=== PATIENT | male | born 1955 | race Caucasian/White ===

== ENCOUNTER 2018-06-30 06:47 | Inpatient (IN) | payer BC, MEDICARE ==
[~2018-06-30] VITALS: Ht 170.2 cm; Wt 98.7 kg
[2018-06-30] MEDS ORDERED: SODIUM CHLORIDE 0.9% 1,000ML IVBOLUS ONE (07:00)
[2018-06-30 07:28] LABS: MEAN CORPUSCULAR HEMOGLOBIN 29.7 pg (27.5-34.5); MEAN CORPUSCULAR HGB CONC 32.9 g/dL (33.2-36.2); MEAN CORPUSCULAR VOLUME 90.3 fL (81-97); MEAN PLATELET VOLUME 8.6 fL (7.4-10.4); PLATELET COUNT 240 x10^3/uL (130-400); RED BLOOD COUNT 4.91 x10^6/uL (4.38-5.82); RED CELL DISTRIBUTION WIDTH 14.6 % (9.4-14.8)
[2018-06-30] MEDS ORDERED: PIPERACILLIN/TAZO/PMX 4.5GM 100 ML IV ONE (07:30)
[2018-06-30] MEDS ORDERED: VANCOMYCIN PER PHARMACY MC PRN (07:30)
[2018-06-30] MEDS ORDERED: ISOS30TA8 PO (07:31)
[2018-06-30] MEDS ORDERED: AMLO10TA6 PO (07:31)
[2018-06-30] MEDS ORDERED: MORP30TA81 PO (07:31)
[2018-06-30] MEDS ORDERED: DOXA1TAB2 PO (07:31)
[2018-06-30] MEDS ORDERED: HYDR-3653 PO (07:31)
[2018-06-30] MEDS ORDERED: BECL10.62 NEB (07:31)
[2018-06-30] MEDS ORDERED: ALBU8.5H8 INH (07:31)
[2018-06-30] MEDS ORDERED: FURO40TA6 PO (07:31)
[2018-06-30 07:37] LABS: ALBUMIN 2.5 g/dL (3.4-5.0); ANION GAP 6 mmol/L (5-15); CALCIUM 9.1 mg/dL (8.5-10.1); CHLORIDE 96 mmol/L (98-107)
[2018-06-30 07:40] LABS: INTERNATIONAL NORMALIZED RATIO 1.12 (0.93-1.1); MD YES; PROTHROMBIN TIME 11.8 Seconds (9.6-11.5)
[2018-06-30 07:41] LABS: <PLATELET ESTIMATE> ADEQUATE; <PLT MORPHOLOGY> NORMAL PLT MORPH; <RBC MORPHOLOGY> NORMAL; BAND#(MANUAL) 2.03 x10^3/uL; BANDS%(MANUAL) 7 % (0-7); LYMPH#(MANUAL) 0.58 x10^3/uL (1-3.4); LYMPHS% (MANUAL) 2 % (22-44); MONOS#(MANUAL) 3.48 x10^3/uL (0.3-2.7); MONOS% (MANUAL) 12 % (2-9); SEG#(MANUAL) 22.91 x10^3/uL (1.8-6.8); SEGS% (MANUAL) 79 % (42-75)
[2018-06-30 07:43] LABS: ALANINE AMINOTRANSFERASE 15 U/L (12-78); ALKALINE PHOSPHATASE 81 U/L (45-117); BILIRUBIN,TOTAL 1.3 mg/dL (0.2-1.0); CREATININE 1.01 mg/dL (0.7-1.3); TOTAL PROTEIN 8.1 g/dL (6.4-8.2); TROPONIN I < 0.015 ng/mL (0.000-0.045)
[2018-06-30] MEDS ORDERED: VANCOMYCIN 1,900 MG in SODIUM CHLORIDE 0.9% 250 ML IV ONE (08:00)
[2018-06-30] MEDS ORDERED: SODIUM CHLORIDE 0.9%, 500ML IVBOLUS ONE (08:30)
[2018-06-30] MEDS ORDERED: OMNIPAQUE 350 MG/ML, 100ML BOTTLE ONE (08:50)
[2018-06-30] MEDS ORDERED: ACETAMINOPHEN 325 MG TABLET PO PRN (10:30)
[2018-06-30] MEDS ORDERED: ENOXAPARIN 40 MG/0.4 ML ONE (11:47)
[2018-06-30] MEDS ORDERED: NS + 20MEQ KCL 1,000 ML IV ONE (11:47)
[2018-06-30] MEDS ORDERED: PIPERACILLIN/TAZO/PMX 4.5GM 100 ML IV SCH (12:00)
[2018-06-30] MEDS: ENOXAPARIN 40 MG/0.4 ML SQ SCH (12:02)
[2018-06-30] MEDS: NS + 20MEQ KCL 1,000 ML IV SCH ×2 (12:02→23:25)
[2018-06-30 13:31] VITALS: BP 105/71
[2018-06-30] MEDS: PIPERACILLIN/TAZO/PMX 4.5GM 100 ML IV SCH (16:36)
[2018-06-30 20:53] VITALS: BP 117/78
[2018-07-01] MEDS: PIPERACILLIN/TAZO/PMX 4.5GM 100 ML IV SCH ×3 (01:03→16:38)
[2018-07-01 01:10] VITALS: BP 107/72
[2018-07-01] MEDS ORDERED: SODIUM CHLORIDE INHALATION 7%, 4 ML NPPB ONE (04:00)
[2018-07-01 05:41] LABS: CHLORIDE 95 mmol/L (98-107)
[2018-07-01 05:45] LABS: MEAN CORPUSCULAR HEMOGLOBIN 29.4 pg (27.5-34.5); MEAN CORPUSCULAR HGB CONC 32.3 g/dL (33.2-36.2); MEAN CORPUSCULAR VOLUME 90.9 fL (81-97); MEAN PLATELET VOLUME 8.3 fL (7.4-10.4); PLATELET COUNT 224 x10^3/uL (130-400); RED BLOOD COUNT 4.23 x10^6/uL (4.38-5.82); RED CELL DISTRIBUTION WIDTH 14.6 % (9.4-14.8)
[2018-07-01 05:52] LABS: ANION GAP 5 mmol/L (5-15); CALCIUM 8.3 mg/dL (8.5-10.1); CREATININE 0.71 mg/dL (0.7-1.3)
[2018-07-01 06:12] LABS: MD YES
[2018-07-01 06:15] LABS: BANDS%(MANUAL) 7 % (0-7); LYMPHS% (MANUAL) 4 % (22-44); MONOS% (MANUAL) 6 % (2-9); SEGS% (MANUAL) 83 % (42-75)
[2018-07-01 06:16] LABS: <PLATELET ESTIMATE> ADEQUATE; <RBC MORPHOLOGY> NORMAL
[2018-07-01 06:17] LABS: <PLT MORPHOLOGY> NORMAL PLT MORPH
[2018-07-01 06:58] VITALS: BP 110/76
[2018-07-01] MEDS: NS + 20MEQ KCL 1,000 ML IV SCH (08:37)
[2018-07-01] MEDS: ENOXAPARIN 40 MG/0.4 ML SQ SCH (10:55)
[2018-07-01 12:33] VITALS: BP 114/72
[2018-07-01 18:29] VITALS: BP 110/72
[2018-07-01] MEDS: ALBUTEROL/IPRATROPIUM 2.5MG/0.5MG, 3 ML NPPB PRN (20:33)
[2018-07-02] MEDS: PIPERACILLIN/TAZO/PMX 4.5GM 100 ML IV SCH ×3 (00:14→16:21)
[2018-07-02 00:16] VITALS: BP 118/81
[2018-07-02] MEDS: ALBUTEROL/IPRATROPIUM 2.5MG/0.5MG, 3 ML NPPB PRN (04:05)
[2018-07-02 05:29] LABS: MEAN CORPUSCULAR HEMOGLOBIN 29.9 pg (27.5-34.5); MEAN CORPUSCULAR HGB CONC 32.9 g/dL (33.2-36.2); MEAN CORPUSCULAR VOLUME 91.1 fL (81-97); MEAN PLATELET VOLUME 8.2 fL (7.4-10.4); PLATELET COUNT 222 x10^3/uL (130-400); RED BLOOD COUNT 4.17 x10^6/uL (4.38-5.82); RED CELL DISTRIBUTION WIDTH 14.8 % (9.4-14.8)
[2018-07-02 05:34] LABS: ALANINE AMINOTRANSFERASE 21 U/L (12-78); ALBUMIN 2.2 g/dL (3.4-5.0); ANION GAP 5 mmol/L (5-15); CALCIUM 8.5 mg/dL (8.5-10.1); CHLORIDE 96 mmol/L (98-107); CREATININE 0.64 mg/dL (0.7-1.3)
[2018-07-02 05:36] LABS: ALKALINE PHOSPHATASE 115 U/L (45-117); BILIRUBIN,TOTAL 0.5 mg/dL (0.2-1.0); TOTAL PROTEIN 7.3 g/dL (6.4-8.2)
[2018-07-02 05:45] LABS: HEMOGLOBIN A1C 6.2 % (4.2-6.3)
[2018-07-02 05:56] LABS: BASOPHILS # (AUTO) 0.04 x10^3/uL (0-0.1); BASOPHILS % (AUTO) 0 % (0-1); EOSINOPHILS # (AUTO) 0.01 x10^3/uL (0-0.4); EOSINOPHILS % (AUTO) 0 % (1-7); LYMPHOCYTES # (AUTO) 0.87 x10^3/uL (1-3.4); LYMPHOCYTES % (AUTO) 6 % (22-44); MD SCAN; MONOCYTES # (AUTO) 1.25 x10^3/uL (0.2-0.8); MONOCYTES % (AUTO) 9 % (2-9); NEUTROPHILS # (AUTO) 12.09 x10^3/uL (1.8-6.8); NEUTROPHILS % (AUTO) 85 % (42-75)
[2018-07-02] MEDS ORDERED: VANCOMYCIN PER PHARMACY MC PRN (08:30)
[2018-07-02] MEDS ORDERED: PHARMACOKINETIC CONSULTATION MC ONE (09:00)
[2018-07-02] MEDS ORDERED: PHARMACOKINETIC MONITORING MC PRN (09:00)
[2018-07-02 09:40] LABS: RAPID INFLUENZA A Negative (Negative); RAPID INFLUENZA B Negative (Negative)
[2018-07-02] MEDS: ENOXAPARIN 40 MG/0.4 ML SQ SCH (10:45)
[2018-07-02] MEDS: SODIUM CHLORIDE 0.9% 1,000 ML IV SCH (10:45)
[2018-07-02] MEDS: VANCOMYCIN 1,900 MG in SODIUM CHLORIDE 0.9% 250 ML IV SCH ×2 (10:45→21:45)
[2018-07-02] MEDS: ALBUTEROL/IPRATROPIUM 2.5MG/0.5MG, 3 ML NPPB SCH ×2 (13:45→20:00)
[2018-07-03] MEDS: PIPERACILLIN/TAZO/PMX 4.5GM 100 ML IV SCH ×3 (00:31→15:49)
[2018-07-03] MEDS: SODIUM CHLORIDE 0.9% 1,000 ML IV SCH (00:31)
[2018-07-03] MEDS ORDERED: SENNA/DOCUSATE TABLET PO PRN (04:00)
[2018-07-03 04:15] LABS: BASOPHILS % (AUTO) 0 % (0-1); EOSINOPHILS # (AUTO) 0.05 x10^3/uL (0-0.4); EOSINOPHILS % (AUTO) 0 % (1-7); LYMPHOCYTES # (AUTO) 1.26 x10^3/uL (1-3.4); LYMPHOCYTES % (AUTO) 10 % (22-44); MD NO; MEAN CORPUSCULAR HEMOGLOBIN 29.7 pg (27.5-34.5); MEAN CORPUSCULAR HGB CONC 32.7 g/dL (33.2-36.2); MEAN CORPUSCULAR VOLUME 90.6 fL (81-97); MEAN PLATELET VOLUME 7.9 fL (7.4-10.4); MONOCYTES # (AUTO) 0.16 x10^3/uL (0.2-0.8); MONOCYTES % (AUTO) 1 % (2-9); NEUTROPHILS # (AUTO) 10.66 x10^3/uL (1.8-6.8); NEUTROPHILS % (AUTO) 88 % (42-75); PLATELET COUNT 270 x10^3/uL (130-400); RED BLOOD COUNT 4.23 x10^6/uL (4.38-5.82); RED CELL DISTRIBUTION WIDTH 14.7 % (9.4-14.8)
[2018-07-03 04:26] LABS: ALANINE AMINOTRANSFERASE 20 U/L (12-78); ANION GAP 7 mmol/L (5-15); CALCIUM 7.8 mg/dL (8.5-10.1); CHLORIDE 99 mmol/L (98-107); CREATININE 0.61 mg/dL (0.7-1.3)
[2018-07-03 04:29] LABS: ALKALINE PHOSPHATASE 102 U/L (45-117); BILIRUBIN,TOTAL 0.7 mg/dL (0.2-1.0); TOTAL PROTEIN 6.6 g/dL (6.4-8.2)
[2018-07-03] MEDS: ALBUTEROL/IPRATROPIUM 2.5MG/0.5MG, 3 ML NPPB SCH ×4 (07:45→20:00)
[2018-07-03] MEDS: VANCOMYCIN 1,900 MG in SODIUM CHLORIDE 0.9% 250 ML IV SCH ×2 (08:51→20:25)
[2018-07-03] MEDS: ENOXAPARIN 40 MG/0.4 ML SQ SCH (10:28)
[2018-07-03] MEDS: KETOROLAC 30 MG/1 ML IV PRN (22:05)
[2018-07-04] MEDS: PIPERACILLIN/TAZO/PMX 4.5GM 100 ML IV SCH ×3 (00:59→16:49)
[2018-07-04 05:32] LABS: ANION GAP 8 mmol/L (5-15); CALCIUM 8.2 mg/dL (8.5-10.1); CHLORIDE 100 mmol/L (98-107); CREATININE 0.53 mg/dL (0.7-1.3)
[2018-07-04] MEDS ORDERED: POTASSIUM CHLORIDE 20 MEQ TAB.ER.PRT PO ONE ×3 (06:30→10:30)
[2018-07-04] MEDS: ALBUTEROL/IPRATROPIUM 2.5MG/0.5MG, 3 ML NPPB SCH (07:45)
[2018-07-04] MEDS: VANCOMYCIN 1,900 MG in SODIUM CHLORIDE 0.9% 250 ML IV SCH (09:24)
[2018-07-04] MEDS: ENOXAPARIN 40 MG/0.4 ML SQ SCH (09:24)
[2018-07-04] MEDS: KETOROLAC 30 MG/1 ML IV PRN ×2 (10:14→21:25)
[2018-07-04] MEDS: ALBUTEROL/IPRATROPIUM 2.5MG/0.5MG, 3 ML NPPB PRN (10:20)
[2018-07-04] MEDS ORDERED: ALUMINUM/MAG/SIMETHICONE 30 ML UDC PO PRN (14:30)
[2018-07-04] MEDS: OXYcodone IR 5MG TABLET PO PRN ×2 (14:35→21:25)
[2018-07-05] MEDS: OXYcodone IR 5MG TABLET PO PRN ×6 (00:24→21:25)
[2018-07-05] MEDS: PIPERACILLIN/TAZO/PMX 4.5GM 100 ML IV SCH (00:24)
[2018-07-05] MEDS ORDERED: VANCOMYCIN 1,900 MG in SODIUM CHLORIDE 0.9% 250 ML IV SCH (02:00)
[2018-07-05 08:00] VITALS: BP 147/74
[2018-07-05] MEDS: CEFTRIAXONE PMX 1GM/50ML 50 ML IV SCH (09:04)
[2018-07-05 10:30] VITALS: BP 127/84
[2018-07-05] MEDS: ENOXAPARIN 40 MG/0.4 ML SQ SCH (12:15)
[2018-07-05] MEDS: DOXYCYCLINE 100 MG in DEXTROSE 5% 250 ML IV SCH ×2 (12:15→23:56)
[2018-07-05 12:58] VITALS: BP 146/91
[2018-07-05 20:05] VITALS: BP 119/75
[2018-07-06 01:32] VITALS: BP 160/85
[2018-07-06] MEDS: OXYcodone IR 5MG TABLET PO PRN ×3 (02:14→13:16)
[2018-07-06 06:47] VITALS: BP 126/70
[2018-07-06] MEDS: CEFTRIAXONE PMX 1GM/50ML 50 ML IV SCH (08:31)
[2018-07-06] MEDS ORDERED: BUDESONIDE 0.5 MG/2 ML INHA NPPB SCH (09:00)
[2018-07-06] MEDS ORDERED: DOXAZOSIN 1MG TABLET PO SCH (09:00)
[2018-07-06] MEDS ORDERED: AMLODIPINE 10 MG TAB PO SCH (09:00)
[2018-07-06] MEDS ORDERED: FUROSEMIDE 40 MG TABLET PO SCH (09:00)
[2018-07-06] MEDS ORDERED: ISOSORBIDE MONONITRATE ER 30 MG TABLET PO SCH (09:00)
[2018-07-06 12:30] VITALS: BP 105/74
[2018-07-06] MEDS ORDERED: CEFD300C37 PO (12:44)
[2018-07-06] MEDS ORDERED: DOXY100T PO (12:44)
[2018-07-06] MEDS: ENOXAPARIN 40 MG/0.4 ML SQ SCH (13:16)
[2018-07-06] MEDS: DOXYCYCLINE 100 MG in DEXTROSE 5% 250 ML IV SCH (13:17)
== END 2018-07-06 18:16 | disposition home or self-care (01) | DRG 871 ==
LOC: ED 09:20 → EDIP 09:29 → 5SO 13:18 → CCU 07-02 07:20 → 5SO 07-05 10:15
PROVIDERS: ADMIT Emergency Medicine; ATTEND Emergency Medicine
DX: A41.9 Sepsis, unspecified organism (principal); J18.9 Pneumonia, unspecified organism; E43 Unspecified severe protein-calorie malnutrition; I50.33 Acute on chronic diastolic (congestive) heart failure; J96.01 Acute respiratory failure with hypoxia; J96.02 Acute respiratory failure with hypercapnia; J44.0 Chronic obstructive pulmonary disease with (acute) lower respiratory infection; F11.20 Opioid dependence, uncomplicated; K92.0 Hematemesis; Z87.891 Personal history of nicotine dependence; F12.90 Cannabis use, unspecified, uncomplicated; Z91.041 Radiographic dye allergy status; M54.9 Dorsalgia, unspecified; G47.33 Obstructive sleep apnea (adult) (pediatric); G89.4 Chronic pain syndrome; I27.20 Pulmonary hypertension, unspecified; I11.0 Hypertensive heart disease with heart failure; J84.10 Pulmonary fibrosis, unspecified; M40.209 Unspecified kyphosis, site unspecified; Z51.5 Encounter for palliative care; Z82.49 Family history of ischemic heart disease and other diseases of the circulatory system; Z98.1 Arthrodesis status; Z79.899 Other long term (current) drug therapy; Z68.34 Body mass index [BMI] 34.0-34.9, adult
CPT/HCPCS: 36415; 36600; 87400; 87449; 87806; 99285; J7620; 71045; 71046; 71260; 80048; 80053; 80202; 80307; 82803; 83036; 83605; 83690; 83880; 84484; 85025; 85610; 85730; 86480; 86850; 86900; 87015; 87040; 87070; 87081; 87116; 87205; 87206; 87305; 87385; 93005; 93306; 94640; 96365; 96375; G0378; J0696; J1650; J1885; J2543; J3370; J3480; J7060; Q9967; G0475; J7030; J7040; J7050